=== PATIENT | female | born 1990 | race Caucasian/White ===

== ENCOUNTER 2017-09-27 15:16 | Inpatient (IN) ==
[2017-09-27] MEDS ORDERED: 0.9 % SODIUM CHLORIDE 1,000 ML IV ONE ×2 (15:57→17:12)
[2017-09-27] MEDS ORDERED: ONDANSETRON ODT 4 MG TABLET SL ONE (16:15)
[2017-09-27 16:47] LABS: Basophils # (Auto) 0 K/mcL (0.0-0.3); Basophils % (Auto) 0.4 % (0.0-2.0); Eosinophils # (Auto) 0.1 K/mcL (0.0-0.7); Eosinophils % (Auto) 0.6 % (0.0-7.0); Granulocytes % (Auto) 69.9 % (38.0-78.0); Lymphocytes # (Auto) 2.1 K/mcL (1.5-4.8); Lymphocytes % (Auto) 22.7 % (15.5-49.0); Mean Cell Volume 91.2 fL (80.0-100.0); Mean Corpuscular HGB Conc 33.1 g/dL (31.0-36.0); Mean Corpuscular Hemoglobin 30.2 pg (26.0-34.0); Monocytes # (Auto) 0.6 K/mcL (0.1-0.9); Monocytes % (Auto) 6.4 % (1.0-12.0); Platelet Count 442 K/mcL (140-440); RBC 5.21 M/mcL (4.00-5.20); Red Cell Distribution Width 12.8 % (11.5-14.5)
--- NOTE | 2017-09-27 16:51 | XRay Report ---
CLINICAL INFORMATION: Nausea and vomiting COMPARISON: None. FINDINGS: Stool gas pattern is normal. The liver appears to be mildly enlarged. Spleen is unremarkable. No soft tissue mass, free air or pathologic calcification. IMPRESSION: Possible hepatomegaly. Consider abdominal ultrasound Interpreted and Authenticated by: Ramírez Rhodes 09/27/17
[2017-09-27 17:14] LABS: Beta Hydroxybutyrate 1.84 mmol/L (< 0.27); C-Reactive Protein < 0.3 mg/dl (0.0-0.8); Lipase 36 U/L (7-60)
[2017-09-27 17:16] LABS: ALT/SGPT 24 U/l (0-40); Albumin 4.7 gm/dL (3.2-5.2); Albumin/Globulin Ratio 1.5 (1.0-2.3); Alkaline Phosphatase 104 U/L (39-117); Blood Urea Nitrogen 7 mg/dl (6-20)
[2017-09-27] MEDS ORDERED: POTASSIUM CHLORIDE 40 MEQ in DEXTROSE 5% IN WATER 500 ML IV ONE (19:10)
[2017-09-27] MEDS ORDERED: INSULIN REGULAR, HUMAN 50 UNIT in 0.9 % SODIUM CHLORIDE 100 ML IV SCH ×2 (19:15→22:00)
--- NOTE | 2017-09-27 19:15 | Emergency Department Note ---
Nausea/Vomiting/Diarrhea HPI - General Chief complaint: Nausea/Vomiting/Diarrhea Stated complaint: nausea and vomiting Time Seen by Provider: 09/27/17 19:05 Source: patient Mode of arrival: ambulatory - History of Present Illness HPI Narrative: Has had difficulty keeping anything down for 8-10 hours. She has a history of gastroparesis. Usually she handles this by going to some clear liquids and rest and it eventually resolves over a day or 2. She has lost some weight. Her gastroparesis is probably related to her diabetes type 1 which onset began around age 19. She has not taken nausea medications for this in the past. She has had some weakness and fatigue. She has not had fevers or chills or sweats I believe. - Related Data Home Medications Medication Instructions Recorded Confirmed insulin aspart U-100 100 unit/mL 12 unit SUB-Q TID ml 02/17/16 01/20/17 subcutaneous pen insulin glargine (U-100) 100 30 unit SUB-Q QHS ml 02/17/16 01/20/17 unit/mL (3 mL) subcutaneous pen Gabapentin [Neurontin] 300 mg PO TID 07/12/16 01/20/17 ibuprofen 800 mg tablet 800 mg PO BID PRN tab 07/31/17 07/31/17 sertraline 100 mg tablet 100 mg PO DAILY tab 07/31/17 07/31/17 Previous Rx's Medication Instructions Recorded insulin syringe-needle U-100 0.3 See Dose Instructions .ROUTE 04/05/15 mL 31 gauge x 5/16" .MEDSUPPLY #100 each Size 2 SI belt #1 each 05/22/15 blood sugar diagnostic strips See Dose Instructions .ROUTE 02/05/16 .MEDSUPPLY #100 each blood-glucose meter See Dose Instructions .ROUTE 02/05/16 .MEDSUPPLY #1 each tramadol 50 mg tablet 50 mg PO Q6H PRN #5 tab 01/20/17 Lidocaine [Lidoderm] 1 patch TOPICAL HS #20 patch 06/23/17 albuterol sulfate HFA 90 2 puff INHALATION Q6H PRN #8.5 g 07/31/17 mcg/actuation aerosol inhaler guaifenesin ER 1,200 mg tablet, 1,200 mg PO Q12H #30 tab 07/31/17 extended release 12 hr Allergies Allergy/AdvReac Type Severity Reaction Status Date / Time No Known Drug Allergies Allergy Verified 09/27/17 21:33 Review of Systems ENT ED: Denies: throat pain, congestion Cardiovascular: Denies: chest pain, palpitations Respiratory: Denies: shortness of breath Gastrointestinal: Denies: abdominal pain, diarrhea, constipation Genitourinary: Denies: dysuria, urgency, frequency Integumentary: Denies: rash Neurological: Reports: headache, weakness Psychiatric: Reports: anxiety, depression Past Medical History - Past Medical History Medical history: Reports: DM (Type I insulin using since age 19.), migraine, other (Hypoglycemia/insulin reactions. 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 ) Head: atraumatic, normocephalic Eye: Present: EOMI ENT: normal oropharynx, mucous membranes moist (Only slightly.) Neck: Present: trachea midline. Absent: lymphadenopathy, thyromegaly Respiratory: Present: normal lung sounds bilaterally. Absent: respiratory distress, wheezes, stridor, accessory muscle use, prolonged expiratory phase Cardiovascular: Present: regular rate, normal rhythm. Absent: systolic murmur, diastolic murmur Abdominal: Present: soft. Absent: distention, tenderness, guarding, rebound, rigidity, organomegaly, mass Extremities: Absent: pedal edema, pretibial edema, calf tenderness Back: Absent: CVA tenderness (R), CVA tenderness (L), spinous process tenderness Neurological: Present: alert, oriented X3 Psychiatric: Present: normal affect, normal mood Skin: Present: warm, dry Course Vital Signs Temperature 98.1 F 09/27/17 15:17 Pulse Rate 96 H 09/27/17 15:17 Respiratory Rate 16 09/27/17 15:17 Blood Pressure 125/87 09/27/17 15:17 Pulse Oximetry (%) 98 09/27/17 15:17 Temperature 97.7 F 09/28/17 04:01 Pulse Rate 104 H 09/28/17 09:04 Respiratory Rate 12 09/28/17 09:04 Blood Pressure 113/77 09/28/17 09:00 Pulse Oximetry (%) 98 09/28/17 09:04 Nausea/Vomiting/Diarrhea - [facility] Narrative Medical decision making narrative: Possible gastroparesis and possible DKA. Multiple labs and imaging done. Abdominal plain x-ray did not show any ileus or blockage type of a pattern or free air. Labs demonstrated an elevated beta hydroxybutyrate. Her potassium is 3.8 which is on the lower side for her situation where she needs some additional insulin and treatment to get out of DKA. I discussed this with her and she is willing to be admitted. Discussed her case with Dr. Garcia who kindly accepted her care. DKA protocol interventions were initiated. - Lab Data Result diagrams: 09/28/17 03:43 09/28/17 03:43 Lab Results 09/27/17 09/27/17 09/27/17 Range/Units 00:17 16:05 16:05 WBC 9.1 (4.5-11.0) K/mcL RBC 5.21 H (4.00-5.20) M/mcL Hgb 15.7 H (12.0-15.0) g/dL Hct 47.5 (36.0-48.0) % MCV 91.2 (80.0-100.0) fL MCH 30.2 (26.0-34.0) pg MCHC 33.1 (31.0-36.0) g/dL RDW 12.8 (11.5-14.5) % Plt Count 442 H (140-440) K/mcL MPV 8.0 (7.4-10.4) fL Gran % 69.9 (38.0-78.0) % Lymph % (Auto) 22.7 (15.5-49.0) % [place] % (Auto) 6.4 (1.0-12.0) % Eos % (Auto) 0.6 (0.0-7.0) % Baso % (Auto) 0.4 (0.0-2.0) % Gran # 6.3 (1.8-8.0) K/mcL Lymph # (Auto) 2.1 (1.5-4.8) K/mcL [place] # (Auto) 0.6 (0.1-0.9) K/mcL Eos # (Auto) 0.1 (0.0-0.7) K/mcL Baso # (Auto) 0 (0.0-0.3) K/mcL ABG Methemoglobin 0.2 L (0.4-1.5) % VBG pH 7.37 (7.32-7.42) U VBG pCO2 41.3 (41.0-51.0) mmHg VBG pO2 62 H (25-40) mmHg VBG HCO3 23.1 L (24.0-28.0) mmol/L VBG Total CO2 24.4 L (25.0-29.0) mmol/L VBG O2 Saturation 83.4 H (40.0-70.0) % VBG Base Excess -2.1 L (-2.0-2.0) Carboxyhemoglobin 3.4 H (0.0-1.5) % THgb Total Hemoglobin 12.6 (12.0-15.0) gm/dL O2 Delivery Level Not Reportable Sodium 133 (133-145) mmol/L Potassium 3.8 (3.3-5.1) mmol/L Chloride 90 L (96-108) mmol/L Carbon Dioxide 25 (22-30) mmol/L Anion Gap 18.0 H (8-16) BUN 7 (6-20) mg/dl Creatinine 0.6 (0.6-1.1) mg/dl GFR Calculation 125 Glucose 451 H* (70-105) mg/dL Hemoglobin A1c (4.0-6.0) % HGB Estim Average Glucose mg/dL Calcium 9.3 (8.6-10.4) mg/dl Magnesium (1.6-2.5) mg/dL Total Bilirubin 0.9 (0.0-1.0) mg/dL AST 21 (0-37) U/l ALT 24 (0-40) U/l Alkaline Phosphatase 104 (39-117) U/L C-Reactive Protein (0.0-0.8) mg/dl Total Protein 7.9 (5.9-8.4) gm/dL Albumin 4.7 (3.2-5.2) gm/dL Globulin 3.2 (2.2-3.7) gm/dL Albumin/Globulin Ratio 1.5 (1.0-2.3) Lipase (7-60) U/L Beta-Hydroxybutyrate (< 0.27) mmol/L 09/27/17 09/27/17 09/27/17 Range/Units 16:05 16:19 19:22 WBC (4.5-11.0) K/mcL RBC (4.00-5.20) M/mcL Hgb (12.0-15.0) g/dL Hct (36.0-48.0) % MCV (80.0-100.0) fL MCH (26.0-34.0) pg MCHC (31.0-36.0) g/dL RDW (11.5-14.5) % Plt Count (140-440) K/mcL MPV (7.4-10.4) fL Gran % (38.0-78.0) % Lymph % (Auto) (15.5-49.0) % [place] % (Auto) (1.0-12.0) % Eos % (Auto) (0.0-7.0) % Baso % (Auto) (0.0-2.0) % Gran # (1.8-8.0) K/mcL Lymph # (Auto) (1.5-4.8) K/mcL [place] # (Auto) (0.1-0.9) K/mcL Eos # (Auto) (0.0-0.7) K/mcL Baso # (Auto) (0.0-0.3) K/mcL ABG Methemoglobin (0.4-1.5) % VBG pH (7.32-7.42) U VBG pCO2 (41.0-51.0) mmHg VBG pO2 (25-40) mmHg VBG HCO3 (24.0-28.0) mmol/L VBG Total CO2 (25.0-29.0) mmol/L VBG O2 Saturation (40.0-70.0) % VBG Base Excess (-2.0-2.0) Carboxyhemoglobin (0.0-1.5) % THgb Total Hemoglobin (12.0-15.0) gm/dL O2 Delivery Level Sodium (133-145) mmol/L Potassium (3.3-5.1) mmol/L Chloride (96-108) mmol/L Carbon Dioxide (22-30) mmol/L Anion Gap (8-16) BUN (6-20) mg/dl Creatinine (0.6-1.1) mg/dl GFR Calculation Glucose (70-105) mg/dL Hemoglobin A1c 12.0 H (4.0-6.0) % HGB Estim Average Glucose 298 mg/dL Calcium (8.6-10.4) mg/dl Magnesium 1.9 (1.6-2.5) mg/dL Total Bilirubin (0.0-1.0) mg/dL AST (0-37) U/l ALT (0-40) U/l Alkaline Phosphatase (39-117) U/L C-Reactive Protein < 0.3 (0.0-0.8) mg/dl Total Protein (5.9-8.4) gm/dL Albumin (3.2-5.2) gm/dL Globulin (2.2-3.7) gm/dL Albumin/Globulin Ratio (1.0-2.3) Lipase 36 (7-60) U/L Beta-Hydroxybutyrate 1.84 H (< 0.27) mmol/L Disposition Pt seen by [facility]/PA only: No Clinical Impression: Gastroparesis Nausea & vomiting Qualifiers: Vomiting type: unspecified Vomiting Intractability: non-intractable Qualified Code(s): R11.2 - Nausea with vomiting, unspecified Diabetes mellitus type 1, uncontrolled Qualifiers: Diabetes mellitus complication status: with other specified complication Qualified Code(s): E10.69 - Type 1 diabetes mellitus with other specified complication DKA (diabetic ketoacidoses) Qualifiers: Diabetes mellitus type: type 1 Diabetes mellitus complication detail: without coma Qualified Code(s): E10.10 - Type 1 diabetes mellitus with ketoacidosis without coma Disposition: Xfer As Inpt ([facility]) Condition: Undetermined
[2017-09-27] MEDS ORDERED: POTASSIUM CHLORIDE 20 MEQ/10 ML VIAL IV ONE (19:44)
[2017-09-27] MEDS ORDERED: 0.9 % SODIUM CHLORIDE 500 ML IV ONE (20:03)
[2017-09-27] MEDS: 0.9 % SODIUM CHLORIDE 1,000 ML IV SCH (21:00)
--- NOTE | 2017-09-27 21:26 | Internal Med History&Physical ---
Medical - H&P: [facility] Patient information: Note initiated : 09/27/17 at 9:25 pm Service Date, if different from initiated Date: [] Patient: Joelle Angulo a 26 y/o F admitted on 09/27/17 for nausea and vomiting. Chief Complaint: [] Chief complaint: nausea vomiting History of present illness: Ms. Angulo is a 26 year old F with a history of gastroparesis/insulin-dependent diabetes who presents to ER experiencing symptoms of nausea and vomitingthat started 24 hours prior to presentation. Patient since yesterdayhas had multiple episodes of emesis which included regurgitant food consumed 24-48 hours ago. Symptoms have progressively worsened to the point patient could not keep anything down. She had associated abdominal pain. She has tried liquid diet which has historically has helped with above symptoms but only this time she ends up in the ER. Initial workup was consistent with early DKA with ketones , elevated anion gap with blood sugars over 400. Patient received crystalloids along with insulin drip. Hospitalist service was consulted. No exact precipitant was identified. At the time of evaluation patient is alert and oriented. She feels a lot better. She is currently on insulin drip. She denies recent URI symptoms, fever chills. She endorses to left index finger wound secondary to cat Bite which has progressed over the last few weeks. She however denies generalized body aches joint pain or swelling. She denies missing her medications. She has been through a stressful move recently and currently lives with her father and 7-year-old son and has not been able to take good care of her diabetes. She has recently switched to Dr. Laquita Jama PCP after she was discharged from prior primary care physician's office. She also follows up with PCP for her chronic pain issues. She denies recent IV drug use. Review of systems A 10 point review of system was performed and is negative except as discussed above Medical - H&P: PM Medical history: Chronic pain (Acute) Dental abscess (Acute) Diabetic neuropathy (Acute) Elevated ferritin level (Acute) Headache (Acute) Lumbar radiculopathy (Acute) Migraine (Acute) Muscle pain (Acute) 2013 Postoperative pain (Acute) Strain of lumbar region (Acute) Tendinitis of right shoulder (Acute) Anxiety (Chronic) 2013 Cervical dysplasia (Chronic) High grade DM type 1 (diabetes mellitus, type 1) (Chronic) 2010 Depression (Chronic) 2013 Dysuria (Chronic) Elevated blood sugar (Chronic) 2010 Gestational diabetes (Chronic) 2010 Vulvitis (Chronic) Surgical history: History of colposcopy (Chronic 09/04/15) History of conization of cervix (Chronic) Cold Knife Conization History of dilatation and curettage (Chronic 12/04/15) History of vaginal hysterectomy (Chronic 01/06/16) And bilateral salpingectomy No pertinent past surgical history (Inactive) Pertinent family history: Nonrelevant Social history: patient is a former smoker but quit at age 21. History of alcoholism Lives with her 7-year-old son and father Drug use: none Medical - H&P: Meds Home Medications Medication Instructions Recorded Confirmed Type insulin syringe-needle U-100 0.3 See Dose Instructions .ROUTE 04/05/15 01/20/17 Rx mL 31 gauge x 10/06" .MEDSUPPLY #100 each Size 2 SI belt #1 each 05/22/15 02/17/16 Rx blood sugar diagnostic strips See Dose Instructions .ROUTE 02/05/16 01/20/17 Rx .MEDSUPPLY #100 each blood-glucose meter See Dose Instructions .ROUTE 02/05/16 01/20/17 Rx .MEDSUPPLY #1 each insulin aspart U-100 100 unit/mL 12 unit SUB-Q TID ml 02/17/16 01/20/17 History subcutaneous pen insulin glargine (U-100) 100 30 unit SUB-Q QHS ml 02/17/16 01/20/17 History unit/mL (3 mL) subcutaneous pen Gabapentin [Neurontin] 300 mg PO TID 07/12/16 01/20/17 History tramadol 50 mg tablet 50 mg PO Q6H PRN #5 tab 01/20/17 01/20/17 Rx Lidocaine [Lidoderm] 1 patch TOPICAL HS #20 patch 06/23/17 Rx albuterol sulfate HFA 90 2 puff INHALATION Q6H PRN #8.5 g 07/31/17 07/31/17 Rx mcg/actuation aerosol inhaler guaifenesin ER 1,200 mg tablet, 1,200 mg PO Q12H #30 tab 07/31/17 07/31/17 Rx extended release 12 hr ibuprofen 800 mg tablet 800 mg PO BID PRN tab 07/31/17 07/31/17 History sertraline 100 mg tablet 100 mg PO DAILY tab 07/31/17 07/31/17 History Allergies Allergy/AdvReac Type Severity Reaction Status Date / Time No Known Drug Allergies Allergy Verified 09/27/17 21:33 Medical - H&P: Exam - Constitutional Vitals: Temp Pulse Resp BP Pulse Ox 98.1 F 114 H 50 H 124/90 100 09/27/17 15:17 09/27/17 20:52 09/27/17 20:52 09/27/17 20:50 09/27/17 20:52 General appearance: no acute distress, thin Exam: nondistressed nonlabored breathing Head normocephalic Neck no lymphadenopathy oral cavity dry No ear discharge Chest tachycardia S1 and S2 regular Diminished breath sounds bases abdomen soft lower extremity no cyanosis clubbing left distal index finger erythema/ulceration psych alert cooperative but appears anxious Neuro nonfocal Medical - H&P: Reslt - Labs CBC & Chem 7: 09/28/17 03:43 09/28/17 03:43 Labs: Short CBC 09/27/17 Range/Units 16:05 WBC 9.1 (4.5-11.0) K/mcL Hgb 15.7 H (12.0-15.0) g/dL Hct 47.5 (36.0-48.0) % Plt Count 442 H (140-440) K/mcL BMP 09/27/17 16:05 Sodium 133 Potassium 3.8 Chloride 90 L Carbon Dioxide 25 BUN 7 Creatinine 0.6 Glucose 451 H* Calcium 9.3 Liver Function 09/27/17 Range/Units 16:05 Total Bilirubin 0.9 (0.0-1.0) mg/dL AST 21 (0-37) U/l ALT 24 (0-40) U/l Alkaline Phosphatase 104 (39-117) U/L Albumin 4.7 (3.2-5.2) gm/dL Medical - H&P: A/P (1) DKA (diabetic ketoacidoses) Current visit: Yes Status: Acute * Early DKA-continue management per protocol, continue insulin drip/crystalloid/ NPO/aggressive electrolyte replacement * nausea secondary to gastroparesis-continue crystalloids and bowel rest along with antiemetics * Lt index finger cellulitis-wound care/clindamycin * History of type 1 diabetes-transition to oral insulin once anion gap normalized and DKA resolved * Neuropathy on gabapentin * Chronic pain on tramadol * anxiety disorder-continue sertraline * full code * Prophylaxis heparin Plan * telemetry admitted * DKA management protocol * Aggressive electrolyte replacement * pre-existing medical condition management as above
[2017-09-27] MEDS ORDERED: POTASSIUM CHLORIDE 20 MEQ PACKET PO PRN (21:29)
[2017-09-27] MEDS ORDERED: POTASSIUM CHLORIDE 40 MEQ in DEXTROSE 5% IN WATER 500 ML IV PRN (21:29)
[2017-09-27] MEDS ORDERED: PROMETHAZINE 25 MG/ML VIAL IV PRN (21:29)
[2017-09-27] MEDS ORDERED: traZODone HCL 50 MG TABLET PO PRN (21:29)
[2017-09-27] MEDS ORDERED: ACETAMINOPHEN 325 MG TABLET PO PRN (21:29)
[2017-09-27] MEDS ORDERED: MAGNESIUM SULFATE 2 GM/50 ML BAG IV PRN (21:29)
[2017-09-27] MEDS ORDERED: INSULIN REGULAR, HUMAN 1 UNIT/0.01 ML UNIT ONE (21:52)
[2017-09-27] MEDS ORDERED: THIAMINE 100 MG/ML VIAL ONE (21:55)
[2017-09-27] MEDS: 0.9 % SODIUM CHLORIDE 10 ML SYRINGE IV SCH (22:03)
[2017-09-27] MEDS ORDERED: traMADol 50 MG TABLET PO PRN (22:08)
[2017-09-27] MEDS: THIAMINE 100 MG in 0.9 % SODIUM CHLORIDE 50 ML IV SCH (22:35)
[2017-09-27] MEDS ORDERED: traMADol 50 MG TABLET PO ONE (22:51)
[2017-09-27] MEDS ORDERED: GABAPENTIN 300 MG CAPSULE ONE (22:51)
[2017-09-27] MEDS ORDERED: CLINDAMYCIN 150 MG CAPSULE PO ONE (22:53)
[2017-09-27] MEDS: ONDANSETRON 4 MG/2 ML VIAL IV PRN (23:54)
[2017-09-27] MEDS: CLINDAMYCIN 150 MG CAPSULE PO SCH (23:55)
[2017-09-28 00:38] LABS: ABG Methemoglobin 0.2 % (0.4-1.5); VBG Base Excess -2.1 (-2.0-2.0); VBG HCO3 23.1 mmol/L (24.0-28.0); VBG Oxygen Saturation 83.4 % (40.0-70.0); VBG PCO2 41.3 mmHg (41.0-51.0); VBG PH 7.37 U (7.32-7.42); VBG PO2 62 mmHg (25-40); VBG Total CO2 24.4 mmol/L (25.0-29.0)
[2017-09-28] MEDS ORDERED: HYDROmorphone 2 MG/ML VIAL ONE (01:03)
[2017-09-28] MEDS ORDERED: DEXTROSE 50% 50 ML VIAL IV ONE (05:07)
[2017-09-28] MEDS: 0.9 % SODIUM CHLORIDE 1,000 ML IV SCH ×2 (05:11→09:20)
[2017-09-28 05:39] LABS: Mean Cell Volume 92.3 fL (80.0-100.0); Mean Corpuscular HGB Conc 33.3 g/dL (31.0-36.0); Mean Corpuscular Hemoglobin 30.7 pg (26.0-34.0); Platelet Count 388 K/mcL (140-440); RBC 4.25 M/mcL (4.00-5.20); Red Cell Distribution Width 12.9 % (11.5-14.5)
[2017-09-28] MEDS ORDERED: CLINDAMYCIN 150 MG CAPSULE PO ONE (05:50)
[2017-09-28] MEDS: CLINDAMYCIN 150 MG CAPSULE PO SCH ×2 (05:54→12:44)
[2017-09-28] MEDS: 0.9 % SODIUM CHLORIDE 10 ML SYRINGE IV SCH ×3 (05:54→21:26)
[2017-09-28 07:04] LABS: ALT/SGPT 15 U/l (0-40); Albumin 3.4 gm/dL (3.2-5.2); Albumin/Globulin Ratio 1.5 (1.0-2.3); Alkaline Phosphatase 71 U/L (39-117); Bilirubin,Direct < 0.2 mg/dL (0.0-0.3); Blood Urea Nitrogen 3 mg/dl (6-20); Gamma Glutamyl Transpeptidase 13 U/L (5-36); Uric Acid 4.3 mg/dL (2.5-8.0)
[2017-09-28] MEDS: HYDROmorphone 2 MG/ML VIAL IV PRN ×2 (07:20→12:02)
[2017-09-28] MEDS: ONDANSETRON 4 MG/2 ML VIAL IV PRN (07:29)
[2017-09-28] MEDS ORDERED: PANTOPRAZOLE 40 MG VIAL IV SCH (07:30)
[2017-09-28 07:37] LABS: Band Neutrophils % 1 % (0-10); Basophils % (Manual) 1 % (0-2); Eosinophils % (Manual) 1 % (0-7); Lymphocytes % 41 % (15-49); Monocytes % (Manual) 7 % (1-12); Platelet Estimate NORMAL (NORMAL); RBC Morphology NORMAL (NORMAL); Segmented Neutrophils % 49 % (38-78)
[2017-09-28] MEDS ORDERED: MULTIVIT,THER IRON,CA,FA & MIN 1 TABLET PO SCH (09:00)
[2017-09-28] MEDS ORDERED: FOLIC ACID 1 MG TABLET PO SCH (09:00)
[2017-09-28] MEDS ORDERED: GABAPENTIN 300 MG CAPSULE PO SCH (09:00)
[2017-09-28] MEDS ORDERED: DOCUSATE SODIUM 100 MG CAPSULE PO SCH (09:00)
[2017-09-28] MEDS ORDERED: CYANOCOBALAMIN (VITAMIN B-12) 500 MCG TABLET PO SCH (09:00)
[2017-09-28] MEDS ORDERED: HEPARIN 5,000 UNIT/ML VIAL SQ SCH (09:00)
[2017-09-28] MEDS ORDERED: INSULIN GLARGINE, HUMAN 1 UNIT/0.01 ML SQ SCH (09:00)
[2017-09-28] MEDS: INSULIN LISPRO 1 UNIT/0.01 ML UNIT SQ SCH ×7 (09:13→23:22)
--- NOTE | 2017-09-28 09:47 | Internal Med Progress Note ---
Medical - PN: Subj Patient information: Note initiated : 09/28/17 at 9:45 am Service Date, if different from initiated Date: [] Patient: Joelle Angulo a 26 y/o F admitted on 09/27/17 for nausea and vomiting. Chief Complaint: [] Interval history: Ms. Angulo is a 26 year old F with a history of gastroparesis/insulin-dependent diabetes who presents to ER experiencing symptoms of nausea and vomitingthat started 24 hours prior to presentation. Patient since yesterdayhas had multiple episodes of emesis which included regurgitant food consumed 24-48 hours ago. Symptoms have progressively worsened to the point patient could not keep anything down. She had associated abdominal pain. She has tried liquid diet which has historically has helped with above symptoms but only this time she ends up in the ER. Initial workup was consistent with early DKA with ketones , elevated anion gap with blood sugars over 400. Patient received crystalloids along with insulin drip. Hospitalist service was consulted. No exact precipitant was identified. At the time of evaluation patient is alert and oriented. She feels a lot better. She is currently on insulin drip. She denies recent URI symptoms, fever chills. She endorses to left index finger wound secondary to cat Bite which has progressed over the last few weeks. She however denies generalized body aches joint pain or swelling. She denies missing her medications. She has been through a stressful move recently and currently lives with her father and 7-year-old son and has not been able to take good care of her diabetes. She has recently switched to Dr. Laquita Jama PCP after she was discharged from prior primary care physician's office. She also follows up with PCP for her chronic pain issues. She denies recent IV drug use. - Constitutional Vitals: Vital Signs Temp Pulse Resp BP Pulse Ox 97.7 F 104 H 12 113/77 98 09/28/17 04:01 09/28/17 09:04 09/28/17 09:04 09/28/17 09:00 09/28/17 09:04 Period Temp Pulse Resp BP Sys/[place] Pulse Ox Last 24 Hr 97.7 F-98.2 F 85-114 0-50 87-142/59-105 97-100 Intake and Output 09/27/17 09/28/17 09/28/17 21:59 05:59 13:59 Intake Total 1095 / 1095 2503 / 2503 200 / 200 Output Total 650 / 650 Balance 1095 / 1095 1853 / 1853 200 / 200 Weight 109 lb 9.6 oz Intake & Output: Intake & Output 09/27/17 09/28/17 09/28/17 21:59 05:59 13:59 Intake Total 1095 / 1095 2503 / 2503 200 / 200 Output Total 650 / 650 Balance 1095 / 1095 1853 / 1853 200 / 200 Weight 109 lb 9.6 oz Intake: IV 1095 / 1095 2503 / 2503 Sodium Chloride 0.9% 1,000 ml @ 1000 / 1000 1000 / 1000 100 mls/hr IV .Q10H YUE Rx#: [id number] HumuLIN R 50 UNIT In Sodium 27 / 27 Chloride 0.9% 100 ml @ 1 UNIT/ HR 2.01 mls/hr IV DUR YUE Rx#: [id number] Potassium Chloride 40 Meq In 95 / 95 425 / 425 Dextrose 5% in Water 500 ml @ 130 mls/hr IV ONCE ONE Rx#: [id number] Vitamin B1 100 mg In Sodium 51 / 51 Chloride 0.9% 50 ml @ 50 mls/hr IV DAILY [facility] Rx#:[id number] Oral 200 / 200 Output: Urine/Stool Mix 250 / 250 Emesis 400 / 400 Other: Meal Breakfast Percent of Meal Consumed 50% General appearance: cooperative, no acute distress Exam: Alert oriented nonlabored breathing Nondistended abdomen No anxiety Left index fingerRedness persistent Medical - PN: Obj Da - Labs CBC & Chem 7: 09/28/17 03:43 09/28/17 03:43 Labs: Abnormal Lab Results 09/28/17 09/28/17 09/27/17 03:43 03:43 16:19 WBC 11.6 H RBC Hgb Plt Count ABG Methemoglobin VBG pO2 VBG HCO3 VBG Total CO2 VBG O2 Saturation VBG Base Excess Carboxyhemoglobin Chloride Anion Gap BUN 3 L Creatinine 0.3 L Glucose 128 H Hemoglobin A1c Calcium 8.0 L Phosphorus 2.2 L Total Protein 5.6 L Beta-Hydroxybutyrate 1.84 H 09/27/17 09/27/17 09/27/17 16:05 16:05 16:05 WBC RBC 5.21 H Hgb 15.7 H Plt Count 442 H ABG Methemoglobin VBG pO2 VBG HCO3 VBG Total CO2 VBG O2 Saturation VBG Base Excess Carboxyhemoglobin Chloride 90 L Anion Gap 18.0 H BUN Creatinine Glucose 451 H* Hemoglobin A1c 12.0 H Calcium Phosphorus Total Protein Beta-Hydroxybutyrate 09/27/17 00:17 WBC RBC Hgb Plt Count ABG Methemoglobin 0.2 L VBG pO2 62 H VBG HCO3 23.1 L VBG Total CO2 24.4 L VBG O2 Saturation 83.4 H VBG Base Excess -2.1 L Carboxyhemoglobin 3.4 H Chloride Anion Gap BUN Creatinine Glucose Hemoglobin A1c Calcium Phosphorus Total Protein Beta-Hydroxybutyrate Meds: Medications Acetaminophen (Tylenol) 650 mg PO Q4-6HP PRN PRN Reason: PAIN/FEVER > 101 Clindamycin HCl (Cleocin) 300 mg PO Q6 [facility] Last Admin: 09/28/17 05:54 Dose: Not Given Cyanocobalamin (Vitamin B-12) 1,000 mcg PO BID YUE Stop: 10/02/17 21:01 Last Admin: 09/28/17 09:37 Dose: 1,000 mcg Diagnostic Test (Pha) (Accu-Chek) 1 each FS Q1H [facility] Last Admin: 09/28/17 07:08 Dose: 1 each Docusate Sodium (Colace) 100 mg PO BID [facility] Last Admin: 09/28/17 09:37 Dose: 100 mg Folic Acid (Folic Acid) 1 mg PO DAILY [facility] Last Admin: 09/28/17 09:37 Dose: 1 mg Gabapentin (Neurontin) 300 mg PO TID [facility] Last Admin: 09/28/17 09:38 Dose: 300 mg Heparin Sodium (Porcine) (Heparin) 5,000 unit SQ Q12 YUE Last Admin: 09/28/17 09:36 Dose: 5,000 unit Hydromorphone HCl (Dilaudid) 0.25 - 0.5 mg IV Q4H PRN PRN Reason: Pain Last Admin: 09/28/17 07:20 Dose: 0.5 mg Insulin Human Regular 50 unit/ (Sodium Chloride) 100.5 mls @ 2.01 mls/hr IV DUR YUE; 1 UNIT/HR PRN Reason: Protocol Last Titration: 09/28/17 05:04 Dose: 0 unit/hr, 0 mls/hr Potassium Chloride 40 meq/ (Dextrose) 520 mls @ 130 mls/hr IV UD PRN PRN Reason: K+ = or < 3.5 Magnesium Sulfate (Magnesium Sulfate) 2 gm in 50 mls @ 50 mls/hr IV UD PRN PRN Reason: MG = or < 1.7 Sodium Chloride (Sodium Chloride 0.9%) 1,000 mls @ 100 mls/hr IV .Q10H [facility] Last Admin: 09/28/17 09:20 Dose: Not Given Thiamine HCl 100 mg/ Sodium (Chloride) 51 mls @ 50 mls/hr IV DAILY YUE Stop: 09/30/17 10:02 Last Infusion: 09/27/17 23:53 Dose: Infused Insulin Glargine (Lantus) 35 unit SQ DAILY [facility] Last Admin: 09/28/17 09:35 Dose: 35 unit Insulin Human Lispro (Humalog) 0 unit SQ ACHS YUE PRN Reason: Protocol Last Admin: 09/28/17 09:13 Dose: Not Given Iron Carb/Multivit/[place]/Folic Acid (Multivitamin W/Minerals) 1 tab PO DAILY [facility] Last Admin: 09/28/17 09:37 Dose: 1 tab Ondansetron HCl (Zofran) 4 mg IV Q4-6HP PRN PRN Reason: Nausea And Vomiting Last Admin: 09/28/17 07:29 Dose: 4 mg Pantoprazole Sodium (Protonix) 40 mg IV ACB [facility] Last Admin: 09/28/17 06:57 Dose: 40 mg Potassium Chloride (Klor-Con) 40 meq PO DAILYP PRN PRN Reason: K+ < 3.5 Promethazine HCl (Phenergan) 6.25 mg IV Q4-6HP PRN PRN Reason: Nausea And Vomiting Last Admin: 09/27/17 22:57 Dose: 6.25 mg Senna/Docusate Sodium (Senna Plus Tablet) 1 tab PO HS [facility] Sodium Chloride (Saline Flush) 10 ml IV Q8 [facility] Last Admin: 09/28/17 05:54 Dose: 10 ml Tramadol HCl (Ultram) 100 mg PO BIDP PRN PRN Reason: Pain Trazodone HCl (Desyrel) 50 mg PO HSP PRN PRN Reason: Insomnia Last Admin: 09/27/17 22:57 Dose: 50 mg - ABG Interpretation ABG results: 09/27/17 00:17 ABG Methemoglobin 0.2 L VBG pH 7.37 VBG pCO2 41.3 VBG pO2 62 H VBG HCO3 23.1 L VBG Total CO2 24.4 L VBG O2 Saturation 83.4 H VBG Base Excess -2.1 L Medical - PN: A/P - Time Spent With Patient Total time spent is greater than 50% in coordination of care (as documented) at patient's floor/unit and/or counseling patient: 25 - 35 minutes (1) DKA (diabetic ketoacidoses) Status: Acute Assessment and plan: assessment * Early DKA-clinically improved on insulin drip. Transition to subcutaneous insulin today. Anion gap normalized.start oral diet * Nausea -clinically improved with crystalloids and antiemetics. Transition to oral diet. * Lt index finger cellulitis-continue wound care/clindamycin * hypokalemia on replacement- * History of type 1 diabetes-transition to oral insulin. Poor outpatient control reflected from A1c 12. * Neuropathy on gabapentin * Chronic pain on tramadol * anxiety disorder-continue sertraline * full code * Prophylaxis heparin Plan * transfer to medical floor * transition to subcutaneous insulin * Aggressive electrolyte replacement * pre-existing medical condition management at home meds Current Visit: Yes
[2017-09-28] MEDS: THIAMINE 100 MG in 0.9 % SODIUM CHLORIDE 50 ML IV SCH (09:48)
[2017-09-28] MEDS: MAG HYDROX/AL HYDROX/SIMETH 30 ML ORAL.SUSP PO PRN ×3 (11:35→19:40)
--- NOTE | 2017-09-28 12:01 | XRay Report ---
CLINICAL INFORMATION: Left index finger cellulitis COMPARISON: None. FINDINGS: No specific radiographic evidence of osteomyelitis or other osseous abnormality. Joint spaces are normal in width and alignment without arthritic change. Mild diffuse soft tissue swelling noted in the index finger. No focal soft tissue abnormality IMPRESSION: Diffuse soft tissue swelling in the second finger compatible with clinical diagnosis cellulitis. No evidence of osteomyelitis or foreign body Interpreted and Authenticated by: Ramírez Rhodes 09/28/17
[2017-09-28] MEDS ORDERED: POTASSIUM CHLORIDE 40 MEQ in DEXTROSE 5% IN WATER 500 ML IV PRN (14:48)
[2017-09-28] MEDS ORDERED: POTASSIUM CHLORIDE 20 MEQ PACKET PO PRN (14:48)
[2017-09-28] MEDS ORDERED: PROMETHAZINE 25 MG/ML VIAL IV PRN (14:48)
[2017-09-28] MEDS ORDERED: traZODone HCL 50 MG TABLET PO PRN (14:48)
[2017-09-28] MEDS ORDERED: 0.9 % SODIUM CHLORIDE 1,000 ML IV SCH (14:48)
[2017-09-28] MEDS ORDERED: MAGNESIUM SULFATE 2 GM/50 ML BAG IV PRN (14:48)
[2017-09-28] MEDS ORDERED: HYDROmorphone 2 MG/ML VIAL IV PRN (14:48)
[2017-09-28] MEDS ORDERED: ONDANSETRON 4 MG/2 ML VIAL IV PRN (14:48)
[2017-09-28] MEDS: GABAPENTIN 300 MG CAPSULE PO SCH ×2 (15:00→21:25)
[2017-09-28] MEDS: ACETAMINOPHEN 325 MG TABLET PO PRN (15:06)
[2017-09-28] MEDS: traMADol 50 MG TABLET PO PRN ×2 (15:31→21:25)
[2017-09-28] MEDS ORDERED: ALBUTEROL SULFATE 1 PUFF INHALER INH PRN (16:28)
[2017-09-28] MEDS: LOPERAMIDE 2 MG CAPSULE PO PRN ×2 (17:00→17:51)
[2017-09-28] MEDS: cefTRIAXone 1 GM VIAL IV SCH (17:04)
[2017-09-28] MEDS ORDERED: CLINDAMYCIN 150 MG CAPSULE PO SCH (18:00)
[2017-09-28] MEDS ORDERED: SENNOSIDES/DOCUSATE SODIUM 1 TAB TABLET PO SCH ×2 (21:00)
[2017-09-28] MEDS ORDERED: SIMVASTATIN 20 MG TABLET PO SCH (21:00)
[2017-09-28] MEDS: DOCUSATE SODIUM 100 MG CAPSULE PO SCH (21:24)
[2017-09-28] MEDS: HEPARIN 5,000 UNIT/ML VIAL SQ SCH (21:24)
[2017-09-28] MEDS: CYANOCOBALAMIN (VITAMIN B-12) 500 MCG TABLET PO SCH (21:25)
[2017-09-29] MEDS: LOPERAMIDE 2 MG CAPSULE PO PRN (01:09)
[2017-09-29] MEDS: ACETAMINOPHEN 325 MG TABLET PO PRN (01:35)
[2017-09-29] MEDS: 0.9 % SODIUM CHLORIDE 10 ML SYRINGE IV SCH ×2 (02:37→11:27)
[2017-09-29 05:55] LABS: Mean Cell Volume 90.2 fL (80.0-100.0); Mean Corpuscular HGB Conc 34.1 g/dL (31.0-36.0); Mean Corpuscular Hemoglobin 30.8 pg (26.0-34.0); Platelet Count 398 K/mcL (140-440); RBC 4.16 M/mcL (4.00-5.20); Red Cell Distribution Width 12.2 % (11.5-14.5)
[2017-09-29 06:30] LABS: ALT/SGPT 15 U/l (0-40); Albumin 3.3 gm/dL (3.2-5.2); Albumin/Globulin Ratio 1.4 (1.0-2.3); Alkaline Phosphatase 70 U/L (39-117); Bilirubin,Direct < 0.2 mg/dL (0.0-0.3); Blood Urea Nitrogen 5 mg/dl (6-20); Gamma Glutamyl Transpeptidase 12 U/L (5-36); Uric Acid 4.4 mg/dL (2.5-8.0)
[2017-09-29 07:12] LABS: Lymphocytes % 49 % (15-49); Monocytes % (Manual) 9 % (1-12); Platelet Estimate NORMAL (NORMAL); RBC Morphology NORMAL (NORMAL); Segmented Neutrophils % 42 % (38-78)
[2017-09-29] MEDS ORDERED: PANTOPRAZOLE 40 MG VIAL IV SCH (07:30)
[2017-09-29] MEDS ORDERED: OMEPRAZOLE 20 MG CAPSULE PO SCH (07:30)
[2017-09-29] MEDS: INSULIN LISPRO 1 UNIT/0.01 ML UNIT SQ SCH ×4 (08:19→11:44)
[2017-09-29] MEDS: cefTRIAXone 1 GM VIAL IV SCH (08:19)
[2017-09-29] MEDS: traMADol 50 MG TABLET PO PRN ×2 (08:20→12:23)
[2017-09-29] MEDS: FOLIC ACID 1 MG TABLET PO SCH ×2 (08:21→09:19)
[2017-09-29] MEDS: GABAPENTIN 300 MG CAPSULE PO SCH (08:21)
[2017-09-29] MEDS: MULTIVIT,THER IRON,CA,FA & MIN 1 TABLET PO SCH ×2 (08:21→09:19)
[2017-09-29] MEDS: CYANOCOBALAMIN (VITAMIN B-12) 500 MCG TABLET PO SCH (08:21)
[2017-09-29] MEDS: HEPARIN 5,000 UNIT/ML VIAL SQ SCH (08:22)
[2017-09-29] MEDS: DOCUSATE SODIUM 100 MG CAPSULE PO SCH (08:22)
[2017-09-29] MEDS ORDERED: SERTRALINE 100 MG TABLET PO SCH (09:00)
[2017-09-29] MEDS ORDERED: INSULIN GLARGINE, HUMAN 1 UNIT/0.01 ML SQ SCH (09:00)
[2017-09-29] MEDS ORDERED: PRAVASTATIN 40 MG PO SCH (09:00)
[2017-09-29] MEDS ORDERED: THIAMINE 100 MG in 0.9 % SODIUM CHLORIDE 50 ML IV SCH (09:00)
--- NOTE | 2017-09-29 09:19 | Discharge Summary ---
Medical - DS: Prov Patient information: Note initiated : 09/29/17 at 9:14 am Service Date, if different from initiated Date: [] Patient: Joelle Angulo 26 y/o F admitted on 09/27/17 for Nausea and Vomiting/ Diabetic Ketoacidoses. Chief Complaint: [] Date of admission: 09/27/17 21:14 Discharge date: 09/29/17 Primary care physician: Laquita Jama Medical - DS: Meds - Discharge Medications Prescriptions: Clindamycin HCl [Cleocin] 300 mg PO Q8 #20 cap Active and Home Medications: Home Medications insulin aspart U-100 100 unit/mL subcutaneous pen See Protocol SUB-Q ACHS ml 02/17/16 [History Confirmed 09/28/17 Last Taken Unknown] insulin glargine (U-100) 100 unit/mL (3 mL) subcutaneous pen 50 unit SUB-Q BID ml 02/17/16 [History Confirmed 09/28/17 Last Taken Unknown] Gabapentin [Neurontin] 900 mg PO DAILY 07/12/16 [History Confirmed 09/28/17 Last Taken Unknown] albuterol sulfate HFA 90 mcg/actuation aerosol inhaler 2 puff INHALATION Q6H PRN #8.5 g 07/31/17 [Rx Confirmed 09/28/17 Last Taken Unknown] sertraline 100 mg tablet 100 mg PO DAILY tab 07/31/17 [History Confirmed Last Taken Unknown] Omeprazole [Prilosec] 40 mg PO DAILY 09/28/17 [History Confirmed 09/28/17 Last Taken Unknown] Pravastatin 40 mg PO DAILY 09/28/17 [History Confirmed 09/28/17 Last Taken Unknown] Vitamin D2 50,000 unit PO WEEKLY 09/28/17 [History Confirmed 09/28/17 Last Taken Unknown] traMADol [Ultram] 50 - 100 mg PO BID PRN 09/28/17 [History Confirmed 09/28/17 Last Taken Unknown] Clindamycin HCl [Cleocin] 300 mg PO Q8 #20 cap 09/29/17 [Rx Last Taken Unknown] Medical - DS: Hosp Hospital course: Discharge diagnoses * DKA-clinically resolved with management per protocol. Patient has a poor outpatient control with A1c 12. diabetic education performed. Transition to subcutaneous insulin. Continue close follow-up with outpatient PCP. likely precipitated by finger cellulitis * Nausea - secondary to DKA. Resolved. * Lt index finger cellulitis-continue wound care/oral clindamycin * hypokalemia on replacement-resolved * History of type 1 diabetes- on basal prandial insulin/CC diet * Neuropathy continue gabapentin * Chronic pain on tramadol * anxiety disorder-continue sertraline BRIEF HOSPITAL COURSE Ms. Angulo is a 26 year old F with a history of gastroparesis/insulin-dependent diabetes who presents to ER experiencing symptoms of nausea and vomitingthat started 24 hours prior to presentation. Patient since yesterdayhas had multiple episodes of emesis which included regurgitant food consumed 24-48 hours ago. Symptoms have progressively worsened to the point patient could not keep anything down. She had associated abdominal pain. She has tried liquid diet which has historically has helped with above symptoms but only this time she ends up in the ER. Initial workup was consistent with early DKA with ketones , elevated anion gap with blood sugars over 400. Patient received crystalloids along with insulin drip. Hospitalist service was consulted. No exact precipitant was identified. At the time of evaluation patient is alert and oriented. She feels a lot better. She is currently on insulin drip. She denies recent URI symptoms, fever chills. She endorses to left index finger wound secondary to cat Bite which has progressed over the last few weeks. She however denies generalized body aches joint pain or swelling. She denies missing her medications. She has been through a stressful move recently and currently lives with her father and 7-year-old son and has not been able to take good care of her diabetes. She has recently switched to Dr. Laquita Jama PCP after she was discharged from prior primary care physician's office. She also follows up with PCP for her chronic pain issues. She denies recent IV drug use. september 28-patient doing a lot better. No overnight events. anion gap Normalized.transition to subcutaneous insulin. DC IV fluids. Complains of diarrhea that has been ongoing over the last few days. Index finger cellulitis improving. X-ray no evidence of osteomyelitis. 09/29-patient doing well. No overnight events. Discharging with advice to continue outpatient insulin regimen for her PCP. Continue outpatient diabetic education. Counseled for diet modification in light of A1c 12 reflecting poor outpatient control. Continue clindamycin for additional 7 days. Continue outpatient wound care for index finger cellulitis. Discharge diagnosis: . - Time Spent with Patient Total time spent providing and/or coordinating discharge services: Greater than 30 minutes Medical - DS: Exam - Constitutional Vitals: Vital Signs Temp Pulse Pulse Resp BP BP Pulse Ox 09/29/17 07:44 98.6 F 91 H 12 108/74 97 09/29/17 03:32 98.5 F 89 12 99/67 97 09/28/17 23:25 98.0 F 98 H 10 L 108/72 98 09/28/17 19:51 98.0 F 103 H 10 L 122/85 98 09/28/17 16:00 98.4 F 18 133/86 98 09/28/17 13:28 22 09/28/17 13:01 105 H 18 116/79 100 09/28/17 12:30 102 H 14 99 09/28/17 12:00 98.2 F 97 H 18 130/94 130/94 100 09/28/17 11:19 97 H 98 09/28/17 11:00 95 H 12 122/83 98 09/28/17 10:00 99 H 12 111/75 99 Intake and Output 09/28/17 09/29/17 09/29/17 21:59 05:59 13:59 Intake Total 1190 / 1190 750 / 750 Balance 1190 / 1190 750 / 750 Intake: IV 50 / 50 Oral 1140 / 1140 750 / 750 Other: Meal (2) cheese sticks soup, 2x saltine pks, cheese stick Percent of Meal Consumed 100% 100% Feeding Ability Independent Independent Stool Size Small Moderate Stool Consistency Liquid Liquid # Voids 1 1 # Bowel Movements 1 1 Weight 118 lb Medical - DS: Data Labs on day of discharge: Labs from last 24 hours 09/29/17 09/29/17 09/29/17 03:11 03:11 03:11 WBC 9.6 RBC 4.16 Hgb 12.8 Hct 37.6 MCV 90.2 MCH 30.8 MCHC 34.1 RDW 12.2 Plt Count 398 MPV 7.8 Total Counted 100 Seg Neutrophils % 42 Band Neutrophils % Not Reportable Lymphocytes % 49 Monocytes % (Manual) 9 Platelet Estimate Normal RBC Morphology Normal Sodium 138 Potassium 3.5 Chloride 102 Carbon Dioxide 26 Anion Gap 10.0 BUN 5 L Creatinine 0.3 L GFR Calculation 157 Glucose 173 H Uric Acid 4.4 Calcium 7.9 L Phosphorus 3.9 Magnesium 1.9 TNP Total Bilirubin 0.2 Direct Bilirubin < 0.2 GGT 12 AST 14 ALT 15 Alkaline Phosphatase 70 Lactate Dehydrogenase 110 Total Protein 5.6 L Albumin 3.3 Globulin 2.3 Albumin/Globulin Ratio 1.4 Triglycerides 175 H 09/28/17 09/28/17 20:15 11:23 WBC RBC Hgb Hct MCV MCH MCHC RDW Plt Count MPV Total Counted Seg Neutrophils % Band Neutrophils % Lymphocytes % Monocytes % (Manual) Platelet Estimate RBC Morphology Sodium Potassium Chloride Carbon Dioxide Anion Gap BUN Creatinine GFR Calculation Glucose Uric Acid Calcium Phosphorus Magnesium 2.0 1.5 L Total Bilirubin Direct Bilirubin GGT AST ALT Alkaline Phosphatase Lactate Dehydrogenase Total Protein Albumin Globulin Albumin/Globulin Ratio Triglycerides Medical - DS: A/P - Patient/Caregiver Discharge Instructions Activity: as per physical therapy, increase activity as tolerated Diet: Consistent Carbohydrate Additional Instructions: continue antibiotics for additional 7 days follow-up PCP in 5-7 days Continue diabetic diet Continue outpatient wound care for index finger cellulitis. return to ER if worsening diarrhea fever or chills or abdominal pain Prescriptions: Clindamycin HCl [Cleocin] 300 mg PO Q8 #20 cap - Problem Maintenance (1) DKA (diabetic ketoacidoses) Status: Acute - Follow up Plan Follow up with: Laquita Jama MD [Primary Care Provider] - Disposition: Home, Self-Care Prognosis: Fair Rehab Potential: Fair I certify that the patient requires SNF services: No Overall status at discharge: patient is progressing back to baseline
[2017-09-29] MEDS ORDERED: THIAMINE 100 MG in 0.9 % SODIUM CHLORIDE 50 ML IV ONE (11:00)
[2017-10-03] MEDS ORDERED: ERGOCALCIFEROL (VITAMIN D2) 50,000 UNIT CAPSULE PO SCH (09:00)
== END 2017-09-29 12:40 | disposition home or self-care (01) | DRG 639 ==
LOC: ED 15:16 → ICU 21:14 → MEDSUR 09-28 14:48
PROVIDERS: ADMIT Internal Medicine; ATTEND Internal Medicine

== ENCOUNTER 2018-06-29 16:25 | Observation (INO) ==
[2018-06-29] MEDS ORDERED: IOPAMIDOL 100 ML BOTTLE IV ONE (16:26)
[2018-06-29] MEDS ORDERED: 0.9 % SODIUM CHLORIDE 1,000 ML IV ONE (16:41)
[2018-06-29] MEDS ORDERED: ONDANSETRON 4 MG/2 ML VIAL IV ONE ×2 (16:41→18:02)
[2018-06-29] MEDS ORDERED: INSULIN REGULAR, HUMAN 1 UNIT/0.01 ML UNIT SQ ONE (16:53)
[2018-06-29] MEDS: HYDROmorphone 2 MG/ML VIAL IV PRN ×3 (17:05→19:25)
[2018-06-29 17:40] LABS: Basophils # (Auto) 0 K/mcL (0.0-0.3); Basophils % (Auto) 0.4 % (0.0-2.0); Eosinophils # (Auto) 0 K/mcL (0.0-0.7); Eosinophils % (Auto) 0.3 % (0.0-7.0); Granulocytes % (Auto) 73.5 % (38.0-78.0); Lymphocytes # (Auto) 1.6 K/mcL (1.5-4.8); Lymphocytes % (Auto) 19.3 % (15.5-49.0); Mean Cell Volume 90.6 fL (80.0-100.0); Monocytes # (Auto) 0.5 K/mcL (0.1-0.9); Monocytes % (Auto) 6.5 % (1.0-12.0); Platelet Count 692 K/mcL (140-440); RBC 5.13 M/mcL (4.00-5.20); Red Cell Distribution Width 12.9 % (11.5-14.5)
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
[2018-06-29 18:07] LABS: ALT/SGPT 12 U/l (0-40); Albumin 4.9 gm/dL (3.2-5.2); Albumin/Globulin Ratio 1.3 (1.0-2.3); Alkaline Phosphatase 209 U/L (39-117); Amylase 55 U/L (28-100); Blood Urea Nitrogen 20 mg/dl (6-20); Lipase 73 U/L (7-60)
[2018-06-29] MEDS ORDERED: PROMETHAZINE 25 MG/ML VIAL IV ONE (19:10)
[2018-06-29 19:22] LABS: Appearance,Urine CLEAR; Bacteria,Urine 0 /hpf (0); Bilirubin,Urine NEG (NEG); Color,Urine STRAW; Glucose,Urine (UA) >=500 mg/dL (NEG); Leukocyte Esterase,Urine NEG /uL (NEG); Protein,Urine NEG (NEG); Specific Gravity,Urine 1.047 (1.000-1.035); Urine Blood 0.2 mg/dL (<0.03); Urine RBC 33 /hpf (0-1); Urine Squamous Epithelial Cell 1 /hpf (0-4); Urine WBC 8 /hpf (0-4); Urobilinogen,Urine NEG (NEG)
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
[2018-06-29] MEDS ORDERED: DEXTROSE 31 GM ORAL.SUSP PO PRN (21:58)
[2018-06-29] MEDS ORDERED: ACETAMINOPHEN 325 MG TABLET PO PRN (21:58)
[2018-06-29] MEDS ORDERED: METHOCARBAMOL 750 MG TABLET PO PRN (21:58)
[2018-06-29] MEDS ORDERED: traMADol 50 MG TABLET PO PRN (21:58)
[2018-06-29] MEDS ORDERED: DEXTROSE 50% 50 ML VIAL IV PRN (21:58)
[2018-06-29] MEDS ORDERED: PROCHLORPERAZINE 10 MG/2 ML VIAL IV PRN (21:58)
[2018-06-29] MEDS ORDERED: PANTOPRAZOLE 40 MG VIAL IV ONE (21:58)
[2018-06-29] MEDS ORDERED: ONDANSETRON 4 MG/2 ML VIAL IV PRN (21:58)
[2018-06-29] MEDS ORDERED: DEXTROSE 50% 50 ML VIAL IV ONE (21:59)
[2018-06-29] MEDS: 0.9 % SODIUM CHLORIDE 1,000 ML IV SCH (22:20)
[2018-06-29] MEDS: INSULIN LISPRO 1 UNIT/0.01 ML UNIT SQ SCH (22:20)
[2018-06-29] MEDS: 0.9 % SODIUM CHLORIDE 10 ML SYRINGE IV SCH (22:21)
[2018-06-29 23:54] LABS: Blood Urea Nitrogen 16 mg/dl (6-20)
[2018-06-30] MEDS: INSULIN LISPRO 1 UNIT/0.01 ML UNIT SQ SCH ×8 (00:15→21:07)
[2018-06-30 01:16] LABS: Estimated Average Glucose(eAG) 252 mg/dL; Hemoglobin A1C 10.4 % HGB (4.0-6.0)
[2018-06-30] MEDS: 0.9 % SODIUM CHLORIDE 10 ML SYRINGE IV SCH ×3 (04:25→21:11)
[2018-06-30 06:38] LABS: Blood Urea Nitrogen 13 mg/dl (6-20)
[2018-06-30] MEDS ORDERED: PANTOPRAZOLE 40 MG VIAL IV SCH (07:30)
--- NOTE | 2018-06-30 07:39 | Emergency Department Note ---
ED Note Addendum Note Addendum: I reviewed this case of Sarahy COX. I agree with her evaluation management documentation. However please had the following diagnosis to this: DKA, patient has elevated beta hydroxybutyrate and anion gap with hyperglycemia meets criteria for DKA. Agree with decision to admit
[2018-06-30] MEDS ORDERED: HYDROmorphone 2 MG/ML VIAL IV ONE (08:20)
[2018-06-30] MEDS: 0.9 % SODIUM CHLORIDE 1,000 ML IV SCH ×3 (08:41→19:33)
[2018-06-30] MEDS ORDERED: GABAPENTIN 100 MG CAPSULE PO SCH (09:00)
[2018-06-30] MEDS ORDERED: SERTRALINE 100 MG TABLET PO SCH (09:00)
[2018-06-30] MEDS ORDERED: INSULIN GLARGINE, HUMAN 1 UNIT/0.01 ML SQ ONE (11:11)
[2018-06-30] MEDS ORDERED: HYDROmorphone 2 MG/ML VIAL IV PRN (11:13)
[2018-06-30] MEDS ORDERED: METOCLOPRAMIDE 10 MG/2 ML VIAL IV SCH (11:30)
[2018-06-30] MEDS: HYDROmorphone 2 MG/ML VIAL IV PRN ×5 (14:15→22:51)
[2018-06-30] MEDS ORDERED: DEXTROSE 31 GM ORAL.SUSP PO PRN (15:47)
[2018-06-30] MEDS ORDERED: METHOCARBAMOL 750 MG TABLET PO PRN (15:47)
[2018-06-30] MEDS ORDERED: traMADol 50 MG TABLET PO PRN (15:47)
[2018-06-30] MEDS ORDERED: DEXTROSE 50% 50 ML VIAL IV PRN (15:47)
[2018-06-30] MEDS ORDERED: ONDANSETRON 4 MG/2 ML VIAL IV PRN (15:47)
[2018-06-30] MEDS ORDERED: PROCHLORPERAZINE 10 MG/2 ML VIAL IV PRN (15:47)
[2018-06-30] MEDS ORDERED: ACETAMINOPHEN 325 MG TABLET PO PRN (15:47)
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
[2018-06-30] MEDS ORDERED: CYCLOBENZAPRINE 10 MG TABLET PO PRN (20:33)
[2018-06-30] MEDS: LOPERAMIDE 2 MG CAPSULE PO PRN ×2 (21:07→22:55)
[2018-07-01] MEDS: HYDROmorphone 2 MG/ML VIAL IV PRN ×4 (02:18→09:45)
[2018-07-01] MEDS: 0.9 % SODIUM CHLORIDE 1,000 ML IV SCH ×2 (05:34→14:19)
[2018-07-01] MEDS: 0.9 % SODIUM CHLORIDE 10 ML SYRINGE IV SCH ×2 (05:54→14:19)
[2018-07-01] MEDS ORDERED: PANTOPRAZOLE 40 MG VIAL IV SCH (07:30)
[2018-07-01] MEDS ORDERED: INSULIN GLARGINE, HUMAN 1 UNIT/0.01 ML SQ SCH ×2 (09:00)
[2018-07-01] MEDS ORDERED: GABAPENTIN 300 MG CAPSULE PO SCH ×2 (09:00)
[2018-07-01] MEDS ORDERED: SERTRALINE 100 MG TABLET PO SCH (09:00)
[2018-07-01] MEDS: INSULIN LISPRO 1 UNIT/0.01 ML UNIT SQ SCH ×2 (09:46→14:18)
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
== END 2018-07-01 13:50 | disposition home or self-care (01) ==
LOC: ICU 16:25 → ED 16:25 → ICU 21:55 → MEDSUR 06-30 18:35
PROVIDERS: ADMIT Internal Medicine; ATTEND Internal Medicine

== ENCOUNTER 2019-03-16 09:44 | Observation (INO) ==
[2019-03-16] MEDS ORDERED: INSULIN REGULAR, HUMAN 1 UNIT/0.01 ML UNIT IV ONE ×2 (10:44→14:25)
[2019-03-16] MEDS ORDERED: 0.9 % SODIUM CHLORIDE 1,000 ML IV ONE (10:44)
[2019-03-16] MEDS ORDERED: METOCLOPRAMIDE 10 MG/2 ML VIAL IV ONE ×2 (10:45→11:50)
[2019-03-16 11:07] LABS: Basophils # (Auto) 0 K/mcL (0.0-0.3); Basophils % (Auto) 0.4 % (0.0-2.0); Eosinophils # (Auto) 0 K/mcL (0.0-0.7); Eosinophils % (Auto) 0.7 % (0.0-7.0); Granulocytes % (Auto) 71.9 % (38.0-78.0); Hematocrit 40.8 % (36.0-48.0); Hemoglobin 13.7 g/dL (12.0-15.0); Lymphocytes # (Auto) 1.4 K/mcL (1.5-4.8); Lymphocytes % (Auto) 19.2 % (15.5-49.0); Mean Cell Volume 90.2 fL (80.0-100.0); Mean Corpuscular HGB Conc 33.6 g/dL (31.0-36.0); Mean Platelet Volume 7.5 fL (7.4-10.4); Monocytes # (Auto) 0.6 K/mcL (0.1-0.9); Monocytes % (Auto) 7.8 % (1.0-12.0); Platelet Count 348 K/mcL (140-440); RBC 4.53 M/mcL (4.00-5.20); Red Cell Distribution Width 12.5 % (11.5-14.5); WBC 7.2 K/mcL (4.5-11.0)
--- NOTE | 2019-03-16 11:20 | XRay Report ---
CLINICAL INFORMATION: Vomiting. Diarrhea. Abdominal pain. TECHNIQUE: Supine and upright abdomen COMPARISON: Previous examination dated 01/23/2019 FINDINGS: Gas and fecal material within the colon. This is considered to be within normal limits. No dilated gas-filled small bowel. No mechanical small bowel obstruction. There is no pneumoperitoneum. No biliary or portal venous gas. No pneumatosis. No focal abnormality. No pathologic calcifications IMPRESSION: Nonspecific and nonobstructive bowel gas pattern Interpreted and Authenticated by: Ramírez Washburn 03/16/19
[2019-03-16 11:26] LABS: Beta Hydroxybutyrate 0.61 mmol/L (< 0.27)
[2019-03-16 11:30] LABS: ALT/SGPT 10 U/l (0-40); AST/SGOT 9 U/l (0-37); Albumin 4.5 gm/dL (3.2-5.2); Albumin/Globulin Ratio 1.3 (1.0-2.3); Alkaline Phosphatase 101 U/L (39-117); Bilirubin,Total 0.5 mg/dL (0.0-1.0); Blood Urea Nitrogen 13 mg/dl (6-20); Calcium 9.9 mg/dl (8.6-10.4); Carbon Dioxide 29 mmol/L (22-30); Chloride 90 mmol/L (96-108); Globulin 3.4 gm/dL (2.2-3.7); Glomerular Filtration Rate 117; Glucose 611 mg/dL (70-105)
--- NOTE | 2019-03-16 11:43 | Emergency Department Note ---
Nausea/Vomiting/Diarrhea HPI - General Chief complaint: Nausea/Vomiting/Diarrhea Stated complaint: Vomiting, diarrhea, abd pain Time Seen by Provider: 03/16/19 10:44 Source: patient Mode of arrival: ambulatory Limitations: no limitations - History of Present Illness HPI Narrative: 28-year-old type I diabetic comes in for nausea vomiting this morning. Pr eviously diagnosed with gastroparesis last week by her primary care provider in [facility] Dr. Rae. Unclear what triggered this morning's episode. Having tremendous amount of stomach pain - Related Data Home Medications Medication Instructions Recorded Confirmed insulin aspart U-100 100 unit/mL See Protocol SUB-Q ACHS ml 02/17/16 06/29/18 (3 mL) subcutaneous pen Gabapentin [Neurontin] 900 mg PO DAILY 07/12/16 06/29/18 sertraline 100 mg tablet 100 mg PO DAILY tab 07/31/17 06/29/18 Omeprazole [Prilosec] 40 mg PO DAILY 09/28/17 06/29/18 Vitamin D2 50,000 unit PO WEEKLY 09/28/17 06/29/18 Insulin Glargine,Hum.rec.anlog 35 unit SQ DAILY 07/01/18 07/01/18 [Basaglar Kwikpen U-100] Previous Rx's Medication Instructions Recorded Methocarbamol [Robaxin] 750 mg PO TIDP PRN #30 tab 06/18/18 Ondansetron HCl [Zofran] 4 mg PO Q4-6H PRN #14 tab 07/01/18 Metoclopramide [Reglan] 10 mg PO TIDAC #45 tab 01/23/19 Nitrofurantoin Monohyd/M-Cryst 100 mg PO BID #14 cap 01/23/19 [Macrobid 100 mg Capsule] Cyclobenzaprine [Flexeril] 10 mg PO TID #20 tab 02/15/19 HYDROcodone/APAP 5/325MG [Universal 1 tab PO Q4HP PRN #7 tab 02/15/19 5-325Mg] Allergies Allergy/AdvReac Type Severity Reaction Status Date / Time No Known Drug Allergies Allergy Verified 03/16/19 09:44 Past Medical History - Past Medical History Medical history: Reports: DM, migraine, other (Gastroparesis) Psychiatric history: Reports: anxiety, depression 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 Surgical history ED: Reports: hysterectomy - Social History smoking status: Never smoker Alcohol use: Reports: Occasionally Drug use: Reports: none Physical Exam Limitations: no limitations Course Vital Signs Temperature 98.1 F 03/16/19 09:44 Pulse Rate 109 H 03/16/19 09:44 Respiratory Rate 18 03/16/19 09:44 Blood Pressure 134/88 03/16/19 09:44 Pulse Oximetry (%) 100 03/16/19 09:44 Temperature 98.1 F 03/16/19 09:44 Pulse Rate 119 H 03/16/19 13:15 Respiratory Rate 11 L 03/16/19 14:28 Blood Pressure 114/78 03/16/19 14:28 Pulse Oximetry (%) 98 03/16/19 14:28 Nausea/Vomiting/Diarrhea - Lab Data Lab results reviewed: Yes I reviewed the patient's lab results. Result diagrams: 03/16/19 10:18 03/16/19 10:18 Lab Results 03/16/19 03/16/19 03/16/19 Range/Units 10:18 10:18 10:18 WBC 7.2 (4.5-11.0) K/mcL RBC 4.53 (4.00-5.20) M/mcL Hgb 13.7 (12.0-15.0) g/dL Hct 40.8 (36.0-48.0) % MCV 90.2 (80.0-100.0) fL MCH 30.2 (26.0-34.0) pg MCHC 33.6 (31.0-36.0) g/dL RDW 12.5 (11.5-14.5) % Plt Count 348 (140-440) K/mcL MPV 7.5 (7.4-10.4) fL Gran % 71.9 (38.0-78.0) % Lymph % (Auto) 19.2 (15.5-49.0) % Prairie % (Auto) 7.8 (1.0-12.0) % Eos % (Auto) 0.7 (0.0-7.0) % Baso % (Auto) 0.4 (0.0-2.0) % Gran # 5.2 (1.8-8.0) K/mcL Lymph # (Auto) 1.4 L (1.5-4.8) K/mcL Prairie # (Auto) 0.6 (0.1-0.9) K/mcL Eos # (Auto) 0 (0.0-0.7) K/mcL Baso # (Auto) 0 (0.0-0.3) K/mcL VBG Lactic Acid (0.5-2.0) mmol/L Sodium 133 (133-145) mmol/L Potassium 4.8 (3.3-5.1) mmol/L Chloride 90 L (96-108) mmol/L Carbon Dioxide 29 (22-30) mmol/L Anion Gap 14.0 (8-16) BUN 13 (6-20) mg/dl Creatinine 0.7 (0.6-1.1) mg/dl GFR Calculation 117 Glucose 611 H* (70-105) mg/dL Calcium 9.9 (8.6-10.4) mg/dl Magnesium 2.1 (1.6-2.5) mg/dL Total Bilirubin 0.5 (0.0-1.0) mg/dL AST 9 (0-37) U/l ALT 10 (0-40) U/l Alkaline Phosphatase 101 (39-117) U/L Total Protein 7.9 (5.9-8.4) gm/dL Albumin 4.5 (3.2-5.2) gm/dL Globulin 3.4 (2.2-3.7) gm/dL Albumin/Globulin Ratio 1.3 (1.0-2.3) Lipase 50 (7-60) U/L Beta-Hydroxybutyrate 0.61 H (< 0.27) mmol/L 03/16/19 Range/Units 11:11 WBC (4.5-11.0) K/mcL RBC (4.00-5.20) M/mcL Hgb (12.0-15.0) g/dL Hct (36.0-48.0) % MCV (80.0-100.0) fL MCH (26.0-34.0) pg MCHC (31.0-36.0) g/dL RDW (11.5-14.5) % Plt Count (140-440) K/mcL MPV (7.4-10.4) fL Gran % (38.0-78.0) % Lymph % (Auto) (15.5-49.0) % Prairie % (Auto) (1.0-12.0) % Eos % (Auto) (0.0-7.0) % Baso % (Auto) (0.0-2.0) % Gran # (1.8-8.0) K/mcL Lymph # (Auto) (1.5-4.8) K/mcL Prairie # (Auto) (0.1-0.9) K/mcL Eos # (Auto) (0.0-0.7) K/mcL Baso # (Auto) (0.0-0.3) K/mcL VBG Lactic Acid 1.5 (0.5-2.0) mmol/L Sodium (133-145) mmol/L Potassium (3.3-5.1) mmol/L Chloride (96-108) mmol/L Carbon Dioxide (22-30) mmol/L Anion Gap (8-16) BUN (6-20) mg/dl Creatinine (0.6-1.1) mg/dl GFR Calculation Glucose (70-105) mg/dL Calcium (8.6-10.4) mg/dl Magnesium (1.6-2.5) mg/dL Total Bilirubin (0.0-1.0) mg/dL AST (0-37) U/l ALT (0-40) U/l Alkaline Phosphatase (39-117) U/L Total Protein (5.9-8.4) gm/dL Albumin (3.2-5.2) gm/dL Globulin (2.2-3.7) gm/dL Albumin/Globulin Ratio (1.0-2.3) Lipase (7-60) U/L Beta-Hydroxybutyrate (< 0.27) mmol/L ABG shows 7.42 PCO2 38 PO2 of 103. There is somewhat of a delay in getting this blood gas so this is after her getting some insulin - Radiology Data Radiology results reviewed: Yes I reviewed the patient's radiology results. Abdominal x-ray series shows no acute ab normality Disposition Pt seen by [facility]/PA only: No Clinical Impression: Gastroparesis, Intractable nausea and vomiting Diabetes mellitus type 1, uncontrolled Qualifiers: Glycemic state: with hyperglycemia Qualified Code(s): E10.65 - Type 1 diabetes mellitus with hyperglycemia Summary: Blood sugar came down to 444, from 555, After starting IV fluids and giving 10 units of insulin. Beta hydroxybutyrate is elevated signifying possible DKA Her blood gas but pH was normal so she is not in DKA-blood gas was taken after she got some fluids and insulin Blood sugar came down into the 300s. She was still feeling nauseous after ge tting 2 x 10 mg doses of Reglan so we will give her some Phenergan Blood sugar came up to 409 despite above-noted interventions so we will give her some more insulin continue IV fluids and treat her ongoing nausea Discussed case with Dr. Benson, hospitalist, who agreed to accept the patient for further care and evaluation in the hospital Disposition: Home, Self-Care Condition: Fair Referrals: Srinivasa Rae MD [Primary Care Provider] -
[2019-03-16] MEDS ORDERED: ESOMEPRAZOLE 40 MG VIAL IV SCH (12:00)
[2019-03-16] MEDS: HYDROmorphone 2 MG/ML VIAL IV PRN ×4 (12:27→20:15)
[2019-03-16] MEDS ORDERED: PROMETHAZINE 25 MG/ML VIAL IM ONE (14:03)
[2019-03-16] MEDS ORDERED: PROMETHAZINE 25 MG/ML VIAL IV ONE (14:13)
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
[2019-03-16] MEDS ORDERED: ACETAMINOPHEN 325 MG TABLET PO PRN (17:20)
[2019-03-16] MEDS ORDERED: ONDANSETRON 4 MG/2 ML VIAL IV PRN (17:20)
[2019-03-16] MEDS ORDERED: 0.9 % SODIUM CHLORIDE 1,000 ML IV SCH (17:20)
[2019-03-16] MEDS: PROMETHAZINE 25 MG/ML VIAL IV PRN (17:35)
[2019-03-16] MEDS: METOCLOPRAMIDE 10 MG/2 ML VIAL IV SCH (17:36)
[2019-03-16] MEDS: PANTOPRAZOLE 40 MG TABLET PO SCH (17:36)
[2019-03-16] MEDS ORDERED: INSULIN REGULAR, HUMAN 50 UNIT in 0.9 % SODIUM CHLORIDE 99.5 ML IV SCH (18:00)
[2019-03-16] MEDS ORDERED: PROMETHAZINE 25 MG TABLET PO PRN (18:10)
[2019-03-16] MEDS: 0.9 % SODIUM CHLORIDE 1,000 ML IV SCH ×2 (19:01→19:11)
[2019-03-16] MEDS: PREGABALIN 25 MG CAPSULE PO SCH (20:19)
[2019-03-16] MEDS: CYANOCOBALAMIN (VITAMIN B-12) 500 MCG TABLET PO SCH (20:19)
[2019-03-16] MEDS: DOCUSATE SODIUM 100 MG CAPSULE PO SCH (20:20)
[2019-03-16] MEDS: 0.9 % SODIUM CHLORIDE 10 ML SYRINGE IV SCH (20:21)
[2019-03-16] MEDS ORDERED: SENNOSIDES/DOCUSATE SODIUM 1 TAB TABLET PO SCH (21:00)
[2019-03-16 22:21] LABS: Appearance,Urine CLEAR; Bacteria,Urine 0 /hpf (0); Bilirubin,Urine NEG (NEG); Color,Urine STRAW; Culture Indicated,Urine NO; Glucose,Urine (UA) >=500 mg/dL (NEG); Ketones,Urine NEG (NEG); Leukocyte Esterase,Urine NEG /uL (NEG); Mucus,Urine FEW /hpf (0); Nitrate,Urine NEG (NEG); Protein,Urine NEG (NEG); Specific Gravity,Urine 1.022 (1.000-1.035); Urine Blood NEG mg/dL (<0.03); Urine RBC 0 /hpf (0-1); Urine Squamous Epithelial Cell < 1 /hpf (0-4); Urine WBC 1 /hpf (0-4); Urobilinogen,Urine NEG (NEG)
[2019-03-16] MEDS: INSULIN LISPRO 1 UNIT/0.01 ML UNIT SQ SCH (22:45)
[2019-03-16] MEDS ORDERED: INSULIN LISPRO 1 UNIT/0.01 ML UNIT SQ ONE (22:47)
[2019-03-17] MEDS: PROMETHAZINE 25 MG/ML VIAL IV PRN ×2 (00:15→04:25)
[2019-03-17] MEDS: HYDROmorphone 2 MG/ML VIAL IV PRN ×2 (00:15→04:26)
[2019-03-17] MEDS: METOCLOPRAMIDE 10 MG/2 ML VIAL IV SCH ×2 (01:56→05:31)
[2019-03-17] MEDS: 0.9 % SODIUM CHLORIDE 1,000 ML IV SCH (04:33)
[2019-03-17] MEDS: 0.9 % SODIUM CHLORIDE 10 ML SYRINGE IV SCH (05:31)
[2019-03-17 05:43] LABS: ALT/SGPT 7 U/l (0-40); AST/SGOT 8 U/l (0-37); Albumin 3.1 gm/dL (3.2-5.2); Albumin/Globulin Ratio 1.3 (1.0-2.3); Alkaline Phosphatase 64 U/L (39-117); Bilirubin,Direct < 0.2 mg/dL (0.0-0.3); Bilirubin,Total 0.4 mg/dL (0.0-1.0); Blood Urea Nitrogen 10 mg/dl (6-20); Calcium 8.3 mg/dl (8.6-10.4); Carbon Dioxide 24 mmol/L (22-30); Chloride 107 mmol/L (96-108); Globulin 2.4 gm/dL (2.2-3.7); Glomerular Filtration Rate 141; Glucose 160 mg/dL (70-105); Lactate Dehydrogenase 97 U/L (94-250); Phosphorous 3.3 mg/dL (2.7-4.5); Triglycerides 107 mg/dl (<150); Uric Acid 3.8 mg/dL (2.5-8.0)
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
[2019-03-17] MEDS ORDERED: HYDROcodone/APAP 5/325MG TABLET PO ONE (07:19)
[2019-03-17] MEDS: PANTOPRAZOLE 40 MG TABLET PO SCH (07:29)
[2019-03-17] MEDS: DOCUSATE SODIUM 100 MG CAPSULE PO SCH (07:33)
[2019-03-17] MEDS: CYANOCOBALAMIN (VITAMIN B-12) 500 MCG TABLET PO SCH (07:33)
[2019-03-17] MEDS: PREGABALIN 25 MG CAPSULE PO SCH (07:35)
[2019-03-17] MEDS: INSULIN LISPRO 1 UNIT/0.01 ML UNIT SQ SCH (07:49)
[2019-03-17] MEDS ORDERED: MIRTAZAPINE 15 MG TABLET PO SCH (09:00)
[2019-03-17] MEDS ORDERED: MULTIVIT,THER IRON,CA,FA & MIN 1 TABLET PO SCH (09:00)
[2019-03-17] MEDS ORDERED: THIAMINE 100 MG TABLET PO SCH (09:00)
[2019-03-17] MEDS ORDERED: INSULIN GLARGINE, HUMAN 1 UNIT/0.01 ML SQ SCH (09:00)
[2019-03-17] MEDS ORDERED: FOLIC ACID 1 MG TABLET PO SCH (09:00)
== END 2019-03-17 08:30 | disposition home or self-care (01) ==
LOC: ED 09:44 → ICU 09:44
PROVIDERS: ADMIT Internal Medicine; ATTEND Internal Medicine